=== PATIENT | male | born 1975 | race Two or more races ===

== ENCOUNTER 2020-05-11 12:19 | Emergency (ER) | payer OTHER, SELFPAY ==
--- NOTE | ~2020-05-11 | CT_ITS ---
EXAMINATION: CT ABDOMEN AND PELVIS WITHOUT CONTRAST CLINICAL INFORMATION: Right-sided flank pain and nausea COMPARISON: None TECHNIQUE: Multidetector volumetric imaging was performed from the superior aspect of the liver through the pubic symphysis. Sagittal and coronal reformatted images were obtained on the technologist's workstation. This CT examination was performed using dose optimization techniques as appropriate, variously including the following: *Automated exposure control *Adjustment of mA and/or kV according to patient size (this includes techniques or standardized protocols for targeted exams where dose is matched to indication/reason for exam; i.e. extremities or head) *Use of iterative reconstruction technique DLP: 1224.06 mGy-cm FINDINGS: LUNG BASES: The visualized lung bases are unremarkable. The heart is not enlarged. There is no pericardial effusion LIVER, GALLBLADDER, AND BILIARY TREE: The liver is normal in size, shape, and attenuation. No focal hepatic lesion or biliary ductal dilatation is present. The gallbladder is decompressed. There is no evidence of radiopaque gallstones, gallbladder wall thickening, or obvious pericholecystic inflammatory changes. PANCREAS: Unremarkable. Very mild mesenteric haziness adjacent to the body of the pancreas, nonspecific. SPLEEN: Unremarkable. ADRENAL GLANDS: Unremarkable. KIDNEYS AND URETERS: There is mild perinephritic stranding and periureteral stranding secondary to a 3 mm calculus at the level of the right mid ureter at the level of the L4 vertebral body. There is minimal right-sided hydronephrosis. No left-sided nephrolithiasis or hydronephrosis. BLADDER: Unremarkable. GASTROINTESTINAL TRACT: The small and large bowel are unremarkable. The appendix is unremarkable. ABDOMINAL WALL: Small fat filled umbilical hernia. Small fat filled right inguinal hernia. LYMPH NODES: Scattered periaortic and mesenteric lymph nodes not enlarged by size criteria. No enlarged lymph nodes visualized. VASCULAR: Abdominal aorta is nonaneurysmal. Pelvic phleboliths are visualized. PELVIC VISCERA: Unremarkable. OSSEOUS STRUCTURES: Multilevel degenerative changes of the thoracolumbar spine with disc space narrowing, vacuum disc phenomenon, anterior osteophyte formation, and facet arthropathy. No large lytic or blastic lesions are noted. CT/CT abdomen pelvis wo con IMPRESSION: 1. Mild perinephritic stranding and periureteral stranding secondary to a 3 mm calculus at the level of the right mid ureter at the level of the L4 vertebral body. 2. Scattered periaortic and mesenteric lymph nodes not enlarged by size criteria, likely reactive. 3. Very mild mesenteric haziness adjacent to the body of the pancreas, nonspecific.
[2020-05-11 12:48] VITALS: BP 157/82; PULSE 85; RESP 16; TEMP 36.8; O2SAT 96; BMI 49.6
--- NOTE | 2020-05-11 13:16 | PC.NURSE ---
delphine thompson at bedside, pt reports 1 episode of vomiting small amount
--- NOTE | 2020-05-11 13:21 | ED_ITS ---
HPI - Back Pain/Injury General Chief Complaint: Back Pain/Injury Stated Complaint: mid back pain Time Seen by Provider: 05/11/20 12:56 Source: patient Mode of arrival: ambulatory Limitations: no limitations History of Present Illness HPI Narrative: 45 y/o male presenting with intermittent, non-traumatic severe right sided back and flank pain for the last 3 days. He states the pain initially woke him up from sleep early morning. It is sharp and stabbing in nature, non-raditaing. He states it comes and goes. He had another episode in the middle of the night on Tuesday, this episode lasted hours. He took Advil but was nauseated and vomited. He denies urinary symptoms, abdominal pain, fever, chills, SOB or chest pain. He reported 5/10 pain in the waiting room that is now resolved. MD elicited complaint: back pain Onset (ago): day(s) (3) Timing: intermittent Severity: moderate Similar Symptoms Previously: No Quality: sharp and stabbing Location: right flank Radiation: none Exacerbating factors: none Relieving factors: none Context: unknown Associated symptoms: denies other symptoms Work related injury: No Related Data Previous Rx's Medication Instructions Recorded ibuprofen 600 mg PO Q8H PRN #10 tab 05/11/20 ondansetron HCl [Zofran] 4 mg PO Q8H PRN #10 tab 05/11/20 oxycodone 5 mg PO Q8H PRN #6 tab 05/11/20 tamsulosin [Flomax] 0.4 mg PO DAILY #7 cap 05/11/20 Allergies Allergy/AdvReac Type Severity Reaction Status Date / Time No Known Allergies Allergy Unverified 12/13/19 15:01 [No Known Allergies*] Review of Systems Review of Systems: Constitutional: No Fever, No Chills Cardiovascular: No Chest Pain, No SOB, No Orthopnea, No Edema Respiratory: No Cough, No Sputum, No Wheezing, No dyspnea Gastrointestinal: No Nausea, No Vomiting, No Diarrhea, No abdominal Pain Genitourinary: No Dysuria, No Urinary Frequency, No Hematuria Musculoskeletal: No joint pain, No Myalgias, +Back pain Skin: No Skin Lesions, No rash Neuro: No Weakness, No Numbness, No Dizziness, No Headache Psych: No Anxiety/Panic, No Depression Heme/Lymph: No Bruising, No Lymphadenopathy Endocrine: No Polyuria, No Polydipsia [facility] Past Medical History Surgical History (Updated 05/11/20 @ 12:52 by Nereida Briggs) H/O hernia repair Social History Social History Smoked in Last 30 Days: No Use of substances other than those prescribed or required for medical reasons: No Advance Directives: No Advance Directives Information Provided: No Physical Exam Vital Signs: Vital Signs: Last Vital Signs Temp 98.2 F 05/11/20 12:48 Pulse 85 05/11/20 12:48 Resp 16 05/11/20 12:48 BP 157/82 H 05/11/20 12:48 Pulse Ox 96 05/11/20 12:48 Body Mass Index 49.6 Appearance: Alert. Oriented X3. No acute distress. Eyes: Pupils equal, round and reactive to light. ENT: Pharynx normal. Neck: Normal inspection. Neck supple. CVS: Normal heart rate and rhythm. Pulses normal. Respiratory: No respiratory distress. Breath sounds normal. Abdomen: Morbidly obese, Soft and nontender. +BS x4. No CVA tenderness. Right flank with mild soft tissue tenderness Skin: Skin warm and dry. Normal skin color. Normal skin turgor. No rashes. Extremities: No lower extremity edema. Neuro: Oriented X 3. No motor deficit. No sensory deficit. Course Course Course Narrative: 45 yo male with intermittent right flank pain associated with nausea and vomiting x1. Concern for possible kidney stones. Will get lab work and CT scan for further evaluation. Reevaluation(s) Reevaluation #1: UA with blood. CT scan showing 3mm kidney stone in middle right ureter with mild peripnephric stranding. No pain at this time. Will give prednisone and flomax now and d/c with the same. Patient counseled on findings , management & follow up. He is stable for discharge. MDM - Back Pain/Injury Lab Data Result diagrams: 05/11/20 13:37 05/11/20 13:37 Labs: Lab Results 05/11/20 05/11/20 05/11/20 Range/Units 13:19 13:37 13:37 WBC 10.5 (4.8-10.8) X10*3/uL RBC 5.38 (4.60-5.80) X10*6/uL Hgb 14.9 (14.0-18.0) g/dl Hct 45.8 (42-52) % MCV 85.1 (80-98) fL MCH 27.7 (27.0-33.0) pg MCHC 32.5 (31.0-36.0) g/dl RDW 14.6 (11.0-16.0) % Plt Count 271 (160-400) X10*3/uL MPV 10.9 (9.4-12.4) fL Immature Gran % (Auto) 0.3 (0.0-0.4) % Neut % (Auto) 71.3 (45-73) % Lymph % (Auto) 20.6 (20-40) % [place] % (Auto) 5.9 (2-11) % Eos % (Auto) 1.2 (0-4) % Baso % (Auto) 0.7 (0-2) % Lymph # (Auto) 2.2 (1.2-4.9) X10*3/uL [place] # (Auto) 0.6 (0.1-1.2) X10*3/uL Eos # (Auto) 0.1 (0.0-0.4) X10*3/uL Baso # (Auto) 0.1 (0.0-0.2) X10*3/uL Abs Immat Gran (auto) 0.03 (0.00-0.03) X10*3/uL Absolute Neuts (auto) 7.5 (2.0-8.3) X10*3/uL Absolute Nucleated RBC 0.000 (0.0-0.012) X10*3/uL Nucleated RBC % (auto) 0.0 (0.0-0.2) /100WBC Sodium 139 (135-145) mmol/L Potassium 4.0 (3.3-5.1) mmol/L Chloride 107 (96-108) mmol/L Carbon Dioxide 25 (22-29) mmol/L Anion Gap 11 L (12-20) BUN 26 H (9-16) mg/dL Creatinine 1.09 (0.5-1.4) mg/dL Estim Creat Clear Calc 111.2 Estimated GFR > 60 Random Glucose 107 (60-115) mg/dL Calcium 9.0 (8.4-10.2) mg/dL Total Bilirubin 0.8 (0.0-1.0) mg/dL Direct Bilirubin 0.2 (0.0-0.5) mg/dL AST 16 (5-37) U/L ALT 17 (0-40) U/L Alkaline Phosphatase 62 (39-117) U/L Total Protein 7.2 (6.5-8.0) g/dL Albumin 4.0 (3.5-5.0) g/dL Urine Color YELLOW Urine Appearance CLEAR Urine pH 6.0 (5.0-8.0) Ur Specific [place] 1.025 (1.005-1.025) Urine Protein NEG (NEG-TRACE) MG/DL Urine Glucose (UA) NEG (NEG) MG/DL Urine Ketones NEG (NEG) MG/DL Urine Blood 3+ H (NEG) Urine Nitrite NEG (NEG) Ur Leukocyte Esterase NEG (NEG) Urine RBC 15-29 H (0) /HPF Urine WBC 1-4 (0-4) /HPF Ur Squamous Epith Cells 1+ /LPF Urine Bacteria TRACE /LPF Urine Mucus 2+ /LPF Discharge Plan Discharge Clinical Impression: Kidney stone on right side Patient Disposition: Home, Self-Care Instructions: Kidney Stones (ED) Additional Instructions: Your CT scan today showed a small 3 mm kidney stone which is the cause if your pain. You will likely pass this on your own. Take the prescribed medications as directed. Increase your oral hydration, drink plenty of water. Follow up with the Urologist next week. If you pain is severe or if you have persistent vomiting come back to the ER for further evaluation. Prescriptions: New tamsulosin [Flomax] 0.4 mg capsule 0.4 mg PO DAILY Qty: 7 RF: 0 ondansetron HCl [Zofran] 4 mg tablet 4 mg PO Q8H PRN (Reason: nausea and vomiting) Qty: 10 RF: 0 ibuprofen 600 mg tablet 600 mg PO Q8H PRN (Reason: pain) Qty: 10 RF: 0 oxycodone 5 mg tablet 5 mg PO Q8H PRN (Reason: pain) Qty: 6 RF: 0 Referrals: Hebert Jj MD [Physician] - 2 days (kidney stone)
[2020-05-11 13:36] LABS: Glucose Urine UA NEG (NEG); Leukocyte Esterase Urine NEG (NEG); Nitrite Urine NEG (NEG); Specific Gravity - Urine 1.025 (1.005-1.025); Urine Blood 3+ (NEG); Urine Ketones NEG (NEG); Urine Protein NEG (NEG-TRACE)
[2020-05-11 13:38] LABS: Appearance Urine CLEAR; Color Urine YELLOW
[2020-05-11 13:43] LABS: MANUAL DIFF FLAG NO
[2020-05-11 13:46] LABS: Basophils Absolute Auto 0.1 X10*3/uL (0.0-0.2); Basophils Percent Auto 0.7 % (0-2); Eosinophils Absolute Auto 0.1 X10*3/uL (0.0-0.4); Eosinophils Percent Auto 1.2 % (0-4); Hematocrit 45.8 % (42-52); Hemoglobin 14.9 g/dl (14.0-18.0); Imm Gran Abs Auto 0.03 X10*3/uL (0.00-0.03); Imm Gran Pct Auto 0.3 % (0.0-0.4); Lymphocytes Absolute Auto 2.2 X10*3/uL (1.2-4.9); Lymphocytes Percent Auto 20.6 % (20-40); Mean Corpuscular HGB Conc 32.5 g/dl (31.0-36.0); Mean Corpuscular Hemoglobin 27.7 pg (27.0-33.0); Mean Corpuscular Volume 85.1 fL (80-98); Mean Platelet Volume 10.9 fL (9.4-12.4); Monocytes Absolute Auto 0.6 X10*3/uL (0.1-1.2); Monocytes Percent Auto 5.9 % (2-11); Neutrophils Absolute Auto 7.5 X10*3/uL (2.0-8.3); Neutrophils Percent Auto 71.3 % (45-73); Platelet Count 271 X10*3/uL (160-400); Red Blood Count 5.38 X10*6/uL (4.60-5.80); Red Cell Distribution Width 14.6 % (11.0-16.0); White Blood Count 10.5 X10*3/uL (4.8-10.8)
[2020-05-11 13:51] LABS: Bacteria Urine TRACE /LPF; Mucus Urine 2+ /LPF; Squamous Epithelial Cell Urine 1+ /LPF
[2020-05-11 14:12] LABS: Alanine Aminotransferase 17 U/L (0-40); Alkaline Phosphatase 62 U/L (39-117); Anion Gap 11 (12-20); Aspartate Amino Transferase 16 U/L (5-37); Bilirubin Direct 0.2 mg/dL (0.0-0.5); Bilirubin Total 0.8 mg/dL (0.0-1.0); Blood Urea Nitrogen 26 mg/dL (9-16); Carbon Dioxide 25 mmol/L (22-29); Chloride 107 mmol/L (96-108); Creatinine Clr Calc Pharmacy 111.2; Estimated Glomerular Filt Rate > 60; Glucose Random 107 mg/dL (60-115); Sodium 139 mmol/L (135-145); Total Protein 7.2 g/dL (6.5-8.0)
[2020-05-11] MEDS: Ibuprofen 600 MG TABLET PO (15:08)
[2020-05-11] MEDS: Tamsulosin HCL 0.4 MG CAPSULE PO (15:08)
[2020-05-11] MEDS: predniSONE 10 MG TABLET 50 MG PO (15:09)
== END 2020-05-11 15:13 | disposition home or self-care (01) ==
PROVIDERS: Physician Assistant; Emergency Provider Emergency Medicine Emergency Medical Services; PCP Internal Medicine
DX: N20.0 Calculus of kidney (principal); M54.5 Low back pain; R10.9 Unspecified abdominal pain; Z79.899 Other long term (current) drug therapy
CPT/HCPCS: 36415; 74176; 80048; 80076; 81001; 85025; 99283; 99284

== ENCOUNTER 2021-05-09 07:21 | Outpatient (REF) | payer OTHER, SELFPAY ==
[2021-05-09 07:42] LABS: MANUAL DIFF FLAG NO
[2021-05-09 07:57] LABS: Basophils Absolute Auto 0.1 X10*3/uL (0.0-0.2); Basophils Percent Auto 0.7 % (0-2); Eosinophils Absolute Auto 0.2 X10*3/uL (0.0-0.4); Eosinophils Percent Auto 2.6 % (0-4); Hemoglobin 15.4 g/dl (14.0-18.0); Imm Gran Abs Auto 0.03 X10*3/uL (0.00-0.03); Imm Gran Pct Auto 0.4 % (0.0-0.4); Lymphocytes Absolute Auto 1.8 X10*3/uL (1.2-4.9); Lymphocytes Percent Auto 22.8 % (20-40); Mean Corpuscular HGB Conc 32.1 g/dl (31.0-36.0); Mean Corpuscular Hemoglobin 27.5 pg (27.0-33.0); Mean Corpuscular Volume 85.9 fL (80.0-98.0); Mean Platelet Volume 10.9 fL (9.4-12.4); Monocytes Absolute Auto 0.4 X10*3/uL (0.1-1.2); Monocytes Percent Auto 4.6 % (2-11); Neutrophils Absolute Auto 5.6 x10*3/uL (2.0-8.3); Neutrophils Percent Auto 68.9 % (45-73); Platelet Count 258 X10*3/uL (160-400); Red Blood Count 5.59 X10*6/uL (4.60-5.80); Red Cell Distribution Width 14.7 % (11.0-16.0); White Blood Count 8.1 X10*3/uL (4.8-10.8)
[2021-05-09 08:27] LABS: Alanine Aminotransferase 15 U/L (0-40); Albumin Level 4.1 g/dL (3.5-5.0); Alkaline Phosphatase 61 U/L (39-117); Anion Gap 13 (12-20); Aspartate Amino Transferase 14 U/L (5-37); Bilirubin Total 0.8 mg/dL (0.0-1.0); Blood Urea Nitrogen 25 mg/dL (9-16); Calcium 9.2 mg/dL (8.4-10.2); Carbon Dioxide 23 mmol/L (22-29); Chloride 106 mmol/L (96-108); Cholesterol 186 mg/dL; Estimated Glomerular Filt Rate > 60; Glucose Random 101 mg/dL (60-115); HDL Cholesterol 36 mg/dL; LDL Cholesterol Calculated 135 mg/dl; Potassium 4.5 mmol/L (3.3-5.1); Sodium 137 mmol/L (135-145); Total Protein 7.5 g/dL (6.5-8.0); Triglycerides 79 mg/dL
[2021-05-09 08:49] LABS: Free T4 (Free Thyroxine) 0.84 ng/dL (0.71-1.85); Thyroid Stimulating Hormone 1.46 uIU/mL (0.32-4.0)
[2021-05-11 05:01] LABS: Folate 7.4 ng/mL (> or = 4.0); Vitamin B12 262 pg/mL (200-900)
== END 2021-05-09 07:22 | disposition home or self-care (01) ==
LOC: HO.LAB 07:21
PROVIDERS: PCP Internal Medicine; Visit Provider Internal Medicine
DX: E66.9 Obesity, unspecified (principal); E53.8 Deficiency of other specified B group vitamins; E78.00 Pure hypercholesterolemia, unspecified
CPT/HCPCS: 36415; 80053; 80061; 82607; 82746; 84439; 84443; 85025

== ENCOUNTER 2022-09-17 07:31 | Outpatient (REF) | payer OTHER, SELFPAY ==
[2022-09-17 07:41] LABS: MANUAL DIFF FLAG NO
[2022-09-17 08:37] LABS: Basophils Absolute Auto 0.1 X10*3/uL (0.0-0.2); Eosinophils Absolute Auto 0.2 X10*3/uL (0.0-0.4); Eosinophils Percent Auto 2.9 % (0-4); Hematocrit 45.4 % (42.0-52.0); Hemoglobin 14.7 g/dl (14.0-18.0); Imm Gran Abs Auto 0.03 X10*3/uL (0.00-0.03); Imm Gran Pct Auto 0.4 % (0.0-0.4); Lymphocytes Absolute Auto 1.9 X10*3/uL (1.2-4.9); Lymphocytes Percent Auto 23.7 % (20-40); Mean Corpuscular HGB Conc 32.4 g/dl (31.0-36.0); Mean Corpuscular Hemoglobin 27.8 pg (27.0-33.0); Mean Platelet Volume 11.1 fL (9.4-12.4); Monocytes Absolute Auto 0.4 X10*3/uL (0.1-1.2); Monocytes Percent Auto 5.3 % (2-11); Neutrophils Absolute Auto 5.2 x10*3/uL (2.0-8.3); Neutrophils Percent Auto 66.7 % (45-73); Platelet Count 259 X10*3/uL (160-400); Red Blood Count 5.28 X10*6/uL (4.60-5.80); Red Cell Distribution Width 14.3 % (11.0-16.0); White Blood Count 7.8 X10*3/uL (4.8-10.8)
[2022-09-17 09:21] LABS: Alanine Aminotransferase 14 U/L (0-40); Albumin Level 3.8 g/dL (3.5-5.0); Alkaline Phosphatase 54 U/L (39-117); Anion Gap 10 (12-20); Aspartate Amino Transferase 14 U/L (5-37); Bilirubin Total 0.7 mg/dL (0.0-1.0); Blood Urea Nitrogen 23 mg/dL (9-16); Calcium 8.9 mg/dL (8.4-10.2); Carbon Dioxide 23 mmol/L (22-29); Chloride 108 mmol/L (96-108); Cholesterol 153 mg/dL; Estimated Glomerular Filt Rate > 60; Glucose Random 104 mg/dL (60-115); HDL Cholesterol 35 mg/dL; LDL Cholesterol Calculated 105 mg/dl; Potassium 3.9 mmol/L (3.3-5.1); Sodium 137 mmol/L (135-145); Total Protein 7.4 g/dL (6.5-8.0); Triglycerides 66 mg/dL; Uric Acid 6.2 mg/dL (3.4-7.0)
[2022-09-17 09:28] LABS: Free T4 (Free Thyroxine) 0.85 ng/dL (0.71-1.85); Thyroid Stimulating Hormone 1.87 uIU/mL (0.32-4.0)
[2022-09-17 09:51] LABS: Folate 3.8 ng/mL (> or = 4.0); Vitamin B12 597 pg/mL (200-900)
[2022-09-17 09:53] LABS: Estimated Average Glucose 105 mg/dL; Hemoglobin A1c % 5.3 %
== END 2022-09-17 07:32 | disposition home or self-care (01) ==
LOC: HO.LAB 07:31
PROVIDERS: PCP Internal Medicine; Visit Provider Internal Medicine
DX: R73.02 Impaired glucose tolerance (oral) (principal); E78.00 Pure hypercholesterolemia, unspecified; I10 Essential (primary) hypertension; N20.0 Calculus of kidney
CPT/HCPCS: 36415; 80053; 80061; 82607; 82746; 83036; 84439; 84443; 84550; 85025

== ENCOUNTER 2023-06-15 10:51 | Outpatient (AMB) | payer OTHER, SELFPAY ==
[2023-06-15 11:06] VITALS: BP 122/90; PULSE 62; O2SAT 97; BMI 46.6
--- NOTE | 2023-06-15 11:06 | MHC.PC.OV ---
Vital Signs 06/15/23 11:06 06/15/23 11:26 Height 5 ft 5 in Weight 280 lb BMI 46.6 BP 122/90 H 118/86 Blood Pressure Location Lt brachial Lt brachial Position Sitting Sitting Pulse 62 Pulse Source Pulse Oximeter Pulse Oximetry (%) 97 Oxygen Delivery Method Room Air Intake Visit Reasons: f/u Intake Note: Patient is here to follow up Gear Setter Required: No Allergies No Known Allergies [No Known Allergies*] Allergy (Verified 06/15/23 11:06) Tobacco use date assessed: 06/15/23 Dental Screening Dental Screen Date: 06/15/23 Did you have a dental visit in the last 12 months?: No Did you have a dental problem in the last 6 months where you did not have access to dental care?: No HPI f/u HPI Details 48-year-old morbidly obese male with hypercholesterolemia hypertension impaired glucose tolerance coming in for follow-up. Last seen in August 2022 [facility] Medical History (Updated 06/15/23 @ 11:25 by Arsalan Cooper MD) Right renal stone Hypercholesterolemia Vitamin D deficiency Surgical History (Updated 03/04/21 @ 16:51 by Arsalan Cooper MD) Male circumcision H/O hernia repair Social History (Updated 03/09/21 @ 10:10 by Arsalan Cooper MD) Housing: Apartment Alcohol intake: never Patient Tobacco Use Status: Never used Tobacco e-Cigarette/Vaping Use: Never Used Second Hand Smoke Exposure: No Current occupational status: unemployed Cognitive needs: No Hearing needs: No Vision needs: No Questionnaire Thrive Questionnaire Date Thrive assessed: 09/16/22 AUDIT C Alcohol Use Questionnaire (AUDIT-C) 1. How often do you have a drink containing alcohol?: Never 3. How often do you have six or more drinks on one occasion?: Never Total Score: 0 RA-7 AMB Questionnaire RA-7 Date RA - 7 assessed: 06/15/23 Source: Developed by Drs. Evan Ball, Dolly Weinstein, Delano Lombardo and colleagues, with an educational patricia from [employer]. Physical exam (Primary Care) Vital Signs: Last Vital Signs Pulse 62 06/15/23 11:06 BP 122/90 H 06/15/23 11:06 Pulse Ox 97 06/15/23 11:06 Oxygen Delivery Method Room Air 06/15/23 11:06 BMI result Body Mass Index 46.6 Tobacco/Smoking Status: Tobacco use Status Tobacco use date assessed 06/15/23 06/15/23 11:11 Patient Tobacco Use Status Never used Tobacco 06/15/23 11:11 e-Cigarette/Vaping Use Never Used 06/15/23 11:11 Thrive Assessment: Date of Thrive Assessment Date Thrive assessed 09/16/22 06/15/23 11:11 Const General: alert; No acute distress Eyes Conjunctivae: conjunctivae normal Resp Auscultation: clear to auscultation bilaterally Cardio Rate: regular rate Rhythm: regular rhythm GI Inspection: Yes normal to inspection Extrem General: Yes normal to inspection and No edema Assessment and Plan Assessment & Plan (1) Folic acid deficiency: Code(s): E53.8 - Deficiency of other specified B group vitamins Plan: Folic acid 1 mg once a day (2) Impaired glucose tolerance: Code(s): R73.02 - Impaired glucose tolerance (oral) Plan: Decrease the amount of carbohydrate intake, pasta, bread, rice and potatoes are all sugar and that is aside from all the sweet stuff, remember that fruits are good but they are Sweet also. (3) Hypertension: Code(s): I10 - Essential (primary) hypertension Plan: Continue with blood pressure medication. Decrease salt intake and exercise presently on hydrochlorothiazide 12.5 mg once a day (4) Morbidly obese: Code(s): E66.01 - Morbid (severe) obesity due to excess calories Plan: Diet and exercise (5) Hypercholesterolemia: Code(s): E78.00 - Pure hypercholesterolemia, unspecified Plan: Avoid fried foods, chicken skin, eggs, butter margarine, pastries and meat. Be it pork or beef they have a lot of cholesterol August 2022 blood work normal (6) Colon cancer screening: Code(s): Z12.11 - Encounter for screening for malignant neoplasm of colon Plan: Patient is reminded about colon cancer screening (7) Colonoscopy refused: Code(s): Z53.20 - Procedure and treatment not carried out because of patient's decision for unspecified reasons Orders: Orders Complete Blood Count Auto Diff Today E53.8 - Deficiency of other specified B group vitamins Comprehensive Met. Panel Today E53.8 - Deficiency of other specified B group vitamins Hemoglobin A1c Today E53.8 - Deficiency of other specified B group vitamins Vitamin B12 and Folate Today E53.8 - Deficiency of other specified B group vitamins Free T4 (Free Thyroxine) Today E53.8 - Deficiency of other specified B group vitamins Thyroid Stimulating Hormone Today E53.8 - Deficiency of other specified B group vitamins Lipid Panel Today E53.8 - Deficiency of other specified B group vitamins, E78.00 - Pure hypercholesterolemia, unspecified Coding Level of Care Code Est Pt Level 4 (28528) Diagnoses Folic acid deficiency E53.8 Impaired glucose tolerance R73.02 Hypertension I10 Morbidly obese E66.01 Hypercholesterolemia E78.00 Colon cancer screening Z12.11 Colonoscopy refused Z53.20
[2023-06-15 11:26] VITALS: BP 118/86
== END 2023-06-15 11:35 | disposition home or self-care (01) ==
PROVIDERS: PCP Internal Medicine; Visit Provider Internal Medicine
DX: E53.8 Deficiency of other specified B group vitamins (principal); E66.01 Morbid (severe) obesity due to excess calories; Z68.42 Body mass index [BMI] 45.0-49.9, adult; R73.02 Impaired glucose tolerance (oral); I10 Essential (primary) hypertension; E78.00 Pure hypercholesterolemia, unspecified; Z12.11 Encounter for screening for malignant neoplasm of colon; Z53.20 Procedure and treatment not carried out because of patient's decision for unspecified reasons
CPT/HCPCS: 99214

== ENCOUNTER 2023-11-23 10:21 | Outpatient (AMB) | payer OTHER, SELFPAY ==
--- NOTE | 2023-11-23 10:26 | A.OFFPC_ITS ---
Vital Signs 11/23/23 10:28 11/23/23 10:41 Height 5 ft 5 in Weight 278 lb BMI 46.3 BP 130/90 H 130/80 Blood Pressure Location Lt brachial Lt brachial Position Sitting Sitting Pulse 72 Pulse Source Pulse Oximeter Pulse Oximetry (%) 98 Oxygen Delivery Method Room Air Intake Visit Reasons: Annual Exam- NEEDS PHQ9 Allergies No Known Allergies [No Known Allergies*] Allergy (Verified 11/23/23 10:28) Medication List - Last Reconciled 11/23/23 by Arsalan Cooper MD blood pressure monitor (Blood Pressure Kit) As directed cyanocobalamin (vitamin B-12) 1,000 mcg PO DAILY folic acid 1 mg PO DAILY hydrochlorothiazide 12.5 mg PO DAILY 90 days Tobacco use date assessed: 06/15/23 Dental Screening Dental Screen Date: 11/23/23 Did you have a dental visit in the last 12 months?: No Did you have a dental problem in the last 6 months where you did not have access to dental care?: No Was dental information given to patient?: Patient has dentist HPI Annual Exam- NEEDS PHQ9 HPI Details 48-year-old morbidly obese male with imp aired glucose tolerance hypertension hypercholesterolemia folic acid deficiency coming in for physical exam last seen in [id number]. Patient has declined colonoscopy. [facility] Medical History (Updated 11/23/23 @ 10:35 by Arsalan Cooper MD) Obesity Right renal stone Hypercholesterolemia Vitamin D deficiency Surgical History (Updated 03/04/21 @ 16:51 by Arsalan Cooper MD) Male circumcision H/O hernia repair Family History (Updated 11/23/23 @ 10:31 by Laura Shah [facility]) Mother No problems noted. Father No problems noted. Brother No problems noted. Sister No problems noted. Daughter No problems noted. Daughter No problems noted. Social History (Updated 03/09/21 @ 10:10 by Arsalan Cooper MD) Housing: Apartment Alcohol intake: never Patient Tobacco Use Status: Never used Tobacco Tobacco use type: Cigarette e-Cigarette/Vaping Use: Never Used Second Hand Smoke Exposure: No Current occupational status: unemployed Cognitive needs: No Hearing needs: No Vision needs: No Questionnaire PHQ-9 Over the last 2 weeks, how often have you been bothered by any of the following problems? 1. Little interest or pleasure in doing things: not at all 2. Feeling down, depressed, or hopeless: not at all 3. Trouble falling or staying asleep, or sleeping too much: not at all 4. Feeling tired or having little energy: not at all 5. Poor appetite or overeating: not at all 6. Feeling bad about yourself - or that you are a failure or have let yourself or your family down: not at all 7. Trouble concentrating on things, such as reading the newspaper or watching television: not at all 8. Moving or speaking so slowly that other people could have noticed. Or the opposite - being so fidgety or restless that you have been moving around a lot more than usual: not at all 9. Thoughts that you would be better off or of hurting yourself in some way: not at all Total score: 0 Depression Screening Interpretation: Negative Depression Screening Done: Yes [id number] - PHQ-9 Billing: Yes Source: Developed by Drs. Evan Ball, Dolly Weinstein, Delano Lombardo and colleagues, with an educational patricia from [employer] Thrive Questionnaire Date Thrive assessed: 11/23/23 I am a: Patient What is your living situation today?: I have a steady place to live Within the past 12 months, did the food you bought not last and you didn't have the money to get more?: Never true Within the past 12 months, did you worry whether your food would run out before you got money to buy more?: Never true Do you have trouble paying for medicines?: No Do you have trouble getting transportation to medical appointments?: No Do you have trouble paying your heating and electricity bill?: No Do you have trouble taking care of your child, family member or friend?: No Do you have trouble with day-to-day activities such as bathing, preparing meals, shopping, managing finances, etc.?: No Are you currently unemployed and looking for a job?: No Are you interested in more education?: No Please select the resources that you would like help with: None Currently or been in a relationship where the following occur: No concerns reported THRIVE Score: 0 AUDIT C Alcohol Use Questionnaire (AUDIT-C) 1. How often do you have a drink containing alcohol?: Never Total Score: 0 RA-7 AMB Questionnaire RA-7 Date RA - 7 assessed: 11/23/23 Feeling nervous, anxious, or on edge: 0 = Not at all Not being able to stop or control worryin = Not at all Worrying too much about different things: 0 = Not at all Trouble relaxin = Not at all Being so restless that it is hard to sit still: 0 = Not at all Becoming easily annoyed or irritable: 0 = Not at all Feeling afraid as if something awful might happen: 0 = Not at all Total RA-7 score (0-4 normal; 5-9 mild; 10-14 moderate; 15-21 severe): 0 Source: Developed by Drs. Evan Ball, Dolly Weinstein, Delano Lombardo and colleagues, with an educational patricia from [employer]. Review of Systems Const Denies poor appetite and Denies weakness Eyes Denies no additional complaints ENT Reports Normal hearing present, Denies dizziness, Denies nasal congestion, Denies tinnitus and Denies sore throat Card Denies chest pain, Denies syncope, Denies rapid heart rate and Denies dyspnea Resp Denies cough and Denies dyspnea GI Denies change in stool character, Reports constipation, Denies diarrhea, Denies nausea and Denies vomiting Denies dysuria and Denies urinary frequency Neuro Reports Normal hearing present, Denies confusion, Denies dizziness, Denies syncope and Denies weakness Psych Denies confusion Physical exam (Primary Care) Vital Signs: Last Vital Signs Pulse 72 11/23/23 10:28 BP 130/90 H 11/23/23 10:28 Pulse Ox 98 11/23/23 10:28 Oxygen Delivery Method Room Air 11/23/23 10:28 BMI result Body Mass Index 46.3 Tobacco/Smoking Status: Tobacco use Status Tobacco use date assessed 06/15/23 11/23/23 10:27 Patient Tobacco Use Status Never used Tobacco 11/23/23 10:27 Tobacco use type Cigarette 11/23/23 10:33 e-Cigarette/Vaping Use Never Used 11/23/23 10:27 PHQ-9: PHQ-9 Score PHQ-9: Total score 0 11/23/23 10:27 Depression Screening Interpretation: Negative Thrive Assessment: Date of Thrive Assessment Date Thrive assessed 11/23/23 11/23/23 10:33 Currently or been in a relationship where the following occur: No concerns reported Const General: No confusion Orientation/consciousness: No confusion Neuro General: No confusion Cranial nerves: Yes Normal hearing present Assessment and Plan Assessment & Plan (1) Annual physical exam: Code(s): Z00.00 - Encounter for general adult medical examination without abnormal findings Plan: Patient is advised to eat healthy, keep well hydrated, keep active and have adequate sleep. (2) Morbidly obese: Code(s): E66.01 - Morbid (severe) obesity due to excess calories Plan: Diet and exercise, noted weight loss (3) Hypertension: Code(s): I10 - Essential (primary) hypertension Plan: Continue with blood pressure medication. Decrease salt intake and exercise on hydrochlorothiazide 12.5 mg once a day (4) Impaired glucose tolerance: Code(s): R73.02 - Impaired glucose tolerance (oral) Plan: Decrease the amount of carbohydrate intake, pasta, bread, rice and potatoes are all sugar and that is aside from all the sweet stuff, remember that fruits are good but they are Sweet also. (5) Folic acid deficiency: Code(s): E53.8 - Deficiency of other specified B group vitamins Plan: Will do retesting (6) Colonoscopy refused: Code(s): Z53.20 - Procedure and treatment not carried out because of patient's decision for unspecified reasons Coding Level of Care Code Est Pt Prev Care 40-64y(32005) Diagnoses Annual physical exam Z00.00 Morbidly obese E66.01 Hypertension I10 Impaired glucose tolerance R73.02 Folic acid deficiency E53.8 Colonoscopy refused Z53.20
[2023-11-23 10:28] VITALS: BP 130/90; PULSE 72; O2SAT 98; BMI 46.3
[2023-11-23 10:41] VITALS: BP 130/80
== END 2023-11-23 10:55 | disposition home or self-care (01) ==
PROVIDERS: PCP Internal Medicine; Visit Provider Internal Medicine
DX: Z00.00 Encounter for general adult medical examination without abnormal findings (principal); E66.01 Morbid (severe) obesity due to excess calories; Z68.42 Body mass index [BMI] 45.0-49.9, adult; I10 Essential (primary) hypertension; R73.02 Impaired glucose tolerance (oral); E53.8 Deficiency of other specified B group vitamins; Z53.20 Procedure and treatment not carried out because of patient's decision for unspecified reasons
CPT/HCPCS: 99396

== ENCOUNTER 2024-11-27 08:53 | Outpatient (AMB) | payer OTHER, SELFPAY ==
[2024-11-27 09:05] VITALS: BP 134/78; PULSE 68; O2SAT 96; BMI 44.9
--- NOTE | 2024-11-27 09:05 | MHC.PC.OV ---
Vital Signs 11/27/24 09:05 Height 5 ft 5 in Weight 270 lb BMI 44.9 BP 134/78 Blood Pressure Location Lt brachial Position Sitting Pulse 68 Pulse Source Pulse Oximeter Pulse Oximetry (%) 96 Oxygen Delivery Method Room Air Intake Visit Reasons: PE Allergies No Known Allergies (No Known Allergies*) Allergy (Verified 11/27/24 09:05) Medication List - Last Reconciled 11/27/24 by Arsalan Cooper MD blood pressure monitor (Blood Pressure Kit) As directed folic acid 1 mg PO DAILY hydrochlorothiazide 12.5 mg PO DAILY 90 days Tobacco use date assessed: 11/27/24 Dental Screening Dental Screen Date: 11/27/24 Did you have a dental visit in the last 12 months?: Yes Did you have a dental problem in the last 6 months where you did not have access to dental care?: No Was dental information given to patient?: Patient has dentist [facility] Medical History (Updated 11/27/24 @ 09:41 by Arsalan Cooper MD) Obesity Right renal stone Hypercholesterolemia Vitamin D deficiency Surgical History (Updated 03/04/21 @ 16:51 by Arsalan Cooper MD) Male circumcision H/O hernia repair Family History (Updated 11/23/23 @ 10:31 by Laura Shah CMA) Mother No problems noted. Father No problems noted. Brother No problems noted. Sister No problems noted. Daughter No problems noted. Daughter No problems noted. Social History (Updated 03/09/21 @ 10:10 by Arsalan Cooper MD) Housing: Apartment Alcohol intake: never Patient Tobacco Use Status: Never used Tobacco Tobacco use type: Cigarette e-Cigarette/Vaping Use: Never Used Second Hand Smoke Exposure: No Current occupational status: unemployed Cognitive needs: No Hearing needs: No Vision needs: No Questionnaire PHQ-9 Over the last 2 weeks, how often have you been bothered by any of the following problems? 1. Little interest or pleasure in doing things: not at all 2. Feeling down, depressed, or hopeless: not at all 3. Trouble falling or staying asleep, or sleeping too much: not at all 4. Feeling tired or having little energy: not at all 5. Poor appetite or overeating: not at all 6. Feeling bad about yourself - or that you are a failure or have let yourself or your family down: not at all 7. Trouble concentrating on things, such as reading the newspaper or watching television: not at all 8. Moving or speaking so slowly that other people could have noticed. Or the opposite - being so fidgety or restless that you have been moving around a lot more than usual: not at all 9. Thoughts that you would be better off or of hurting yourself in some way: not at all Total score: 0 Depression Screening Interpretation: Negative Depression Screening Done: Yes Source: Developed by Drs. Evan Ball, Dolly Weinstein, eDlano Lombardo and colleagues, with an educational patricia from [employer]. Thrive Questionnaire Date Thrive assessed: 11/20/24 I am a: Patient What is your living situation today?: I have a steady place to live Within the past 12 months, did the food you bought not last and you didn't have the money to get more?: Never true Within the past 12 months, did you worry whether your food would run out before you got money to buy more?: Never true Do you have trouble paying for medicines?: No Do you have trouble getting transportation to medical appointments?: No Do you have trouble paying your heating and electricity bill?: No Do you have trouble taking care of your child, family member or friend?: No Do you have trouble with day-to-day activities such as bathing, preparing meals, shopping, managing finances, etc.?: No Are you currently unemployed and looking for a job?: Yes Are you interested in more education?: No Please select the resources that you would like help with: None Currently or been in a relationship where the following occur: No concerns reported THRIVE Score: 0 AUDIT C Alcohol Use Questionnaire (AUDIT-C) 1. How often do you have a drink containing alcohol?: Never 3. How often do you have six or more drinks on one occasion?: Never Total Score: 0 RA-7 AMB Questionnaire RA-7 Date RA - 7 assessed: 11/27/24 Feeling nervous, anxious, or on edge: 0 = Not at all Not being able to stop or control worryin = Not at all Worrying too much about different things: 0 = Not at all Trouble relaxin = Not at all Being so restless that it is hard to sit still: 0 = Not at all Becoming easily annoyed or irritable: 0 = Not at all Feeling afraid as if something awful might happen: 0 = Not at all Total RA-7 score (0-4 normal; 5-9 mild; 10-14 moderate; 15-21 severe): 0 Source: Developed by Drs. Evan Ball, Dolly Weinstein, Delano Lombardo and colleagues, with an educational patricia from [employer]. Review of Systems Const Denies poor appetite and Denies weakness Eyes Denies no additional complaints ENT Reports Normal hearing present, Denies dizziness, Denies nasal congestion, Denies tinnitus and Denies sore throat Card Denies chest pain, Denies syncope, Denies rapid heart rate and Denies dyspnea Resp Denies cough and Denies dyspnea GI Denies change in stool character, Reports constipation, Denies diarrhea, Denies nausea and Denies vomiting Denies dysuria and Denies urinary frequency Neuro Reports Normal hearing present, Denies confusion, Denies dizziness, Denies syncope and Denies weakness Psych Denies confusion Physical exam (Primary Care) Vital Signs: Last Vital Signs Pulse 68 11/27/24 09:05 BP 134/78 11/27/24 09:05 Pulse Ox 96 11/27/24 09:05 Oxygen Delivery Method Room Air 11/27/24 09:05 BMI result Body Mass Index 44.9 Tobacco/Smoking Status: Tobacco use Status Tobacco use date assessed 11/27/24 11/27/24 09:06 Patient Tobacco Use Status Never used Tobacco 11/27/24 09:06 Tobacco use type Cigarette 11/27/24 09:06 e-Cigarette/Vaping Use Never Used 11/27/24 09:06 PHQ-9: PHQ-9 Score PHQ-9: Total score 0 11/27/24 09:50 Depression Screening Interpretation: Negative Thrive Assessment: Date of Thrive Assessment Date Thrive assessed 11/20/24 11/27/24 09:06 Currently or been in a relationship where the following occur: No concerns reported Const General: No confusion Orientation/consciousness: No confusion HENMT Head: Yes normocephalic Ears: external ears normal and TM's normal bilaterally Face and sinus: Yes normal facial exam Mouth: moist mucous membranes Throat: Yes tonsils normal Eyes Conjunctivae: conjunctivae normal Pupils: Equal, round and reactive pupils present and Pupil accommodation reflex normal Direct Ophthalmoscopy: normal light reflex Neck Neck: No lymphadenopathy Thyroid: Thyroid normal Chest Chest palpation & inspection: normal inspection of the chest Resp Effort & Inspection: normal respiratory effort and no audible wheezes Auscultation: clear to auscultation bilaterally, no crackles, no wheezes and lung sounds not diminished Cardio Rate: regular rate Rhythm: regular rhythm Peripheral pulses: radial pulses present and dorsalis pedis present GI Palpation (GI): no masses Auscultation: normal bowel sounds and normoactive bowel sounds Rectal Exam - Male: Yes deferred Skin General skin exam: no rashes or lesions noted Rashes: no rashes Neuro General: No confusion Cranial nerves: Yes Equal, round and reactive pupils present and Yes Normal hearing present Cognition (Neuro): normal cognition Gait exam (Neuro): Normal gait present Motor exam (neuro): 5/5 motor strength present throughout Deep tendon reflexes (DTR's): Right brachioradialis reflex intensity grade: 2+, Left brachioradialis reflex intensity grade: 2+, Right patellar reflex intensity grade: 2+ and Left patellar reflex intensity grade: 2+ Extrem General: No edema Immunizations Boostrix Tdap 2.5 Lf unit-8 mcg-5 Lf/0.5 mL intramuscular syringe Performing Provider: Arsalan Cooper MD [facility] Administered by: Laura Shah CMA on 11/27/24 09:51 Dose Route Admin Location Dispensed Lot Number Expiration Date NDC Practical Nursing Instructor 0.5 mL IM Left Deltoid 0.5 mL [id number] 01/18/27 28405-162-41 Code On Network Coding Total Dispensed Waste 0.5 mL 0 % VIS Given Date VIS Provided VIS Publication Date 11/27/24 Single Vaccine 20 Eligibility Eligibility Date Funding Source Not [facility] Eligible 11/27/24 Private Coding Level of Care Code Est Pt Prev Care 40-64y(23569) Diagnoses Annual physical exam Z00.00 Colon cancer screening Z12.11 Folic acid deficiency E53.8 Morbidly obese E66.01 Impaired glucose tolerance R73.02 Hypertension I10 Hypercholesterolemia E78.00 Colonoscopy refused Z53.20 Bilateral knee pain M25.561; M25.562 Assessment & Plan Assessment & Plan (1) Annual physical exam: Code(s): Z00.00 - Encounter for general adult medical examination without abnormal findings Category: Medical Plan: Patient is advised to eat healthy, keep well hydrated, keep active and have adequate sleep. (2) Colon cancer screening: Code(s): Z12.11 - Encounter for screening for malignant neoplasm of colon Category: Medical Plan: Patient is reminded about colon cancer screening (3) Folic acid deficiency: Code(s): E53.8 - Deficiency of other specified B group vitamins Category: Medical Plan: Continue with folic acid (4) Morbidly obese: Code(s): E66.01 - Morbid (severe) obesity due to excess calories Category: Medical Plan: Diet and exercise (5) Impaired glucose tolerance: Code(s): R73.02 - Impaired glucose tolerance (oral) Category: Medical Plan: Decrease the amount of carbohydrate intake, pasta, bread, rice and potatoes are all sugar and that is aside from all the sweet stuff, remember that fruits are good but they are Sweet also. (6) Hypertension: Code(s): I10 - Essential (primary) hypertension Category: Medical Plan: Continue with blood pressure medication. Decrease salt intake and exercise on hydrochlorothiazide 12.5 mg once a day (7) Hypercholesterolemia: Code(s): E78.00 - Pure hypercholesterolemia, unspecified Category: Medical Plan: Avoid fried foods, chicken skin, eggs, butter margarine, pastries and meat. Be it pork or beef they have a lot of cholesterol LDL goal of less than 130 and triglyceride of less than 150 (8) Colonoscopy refused: Code(s): Z53.20 - Procedure and treatment not carried out because of patient's decision for unspecified reasons Category: Medical (9) Bilateral knee pain: Code(s): M25.561 - Pain in right knee; M25.562 - Pain in left knee Category: Medical Plan History of Present Illness The patient is a 49-year-old male presenting for a physical examination and management of chronic conditions. He has a history of obesity, hypercholesterolemia, nephrolithiasis, hypertension, and impaired glucose tolerance. The patient was last seen in October of the previous year and has been following up with ophthalmology. The patient's last blood work in 2022 showed normal blood count and electrolytes, but elevated blood sugar with normal hemoglobin A1c and cholesterol levels. Folic acid levels were noted to be low. The patient denies any new diagnoses or surgeries since the last visit. He does not consume alcohol, smoke cigarettes, or use recreational drugs. There is no family history of heart attacks or cancers. The patient reports knee pain on both sides, more pronounced on one side, but denies any falls or need for x-rays at this time. He has been advised to increase water intake due to hydrochlorothiazide use. Health Maintenance - Colon cancer screening discussed, patient not ready for colonoscopy or Cologuard testing - Tetanus vaccination due, last received in 2014 - Flu vaccination recommended for December Social History - Does not consume alcohol, smoke cigarettes, or use recreational drugs - Reports drinking two to three glasses of water per day, advised to increase to three to four glasses Review of Systems - General: Denies dizziness, nausea, vomiting, fever, or fatigue - Cardiovascular: Denies chest pain, dyspnea, or palpitations - Respiratory: Denies shortness of breath or cough - Musculoskeletal: Reports bilateral knee pain, more pronounced on one side - Gastrointestinal: Denies heartburn or bowel movement issues - Genitourinary: Denies dysuria, reports nocturia twice per night - Neurological: Denies headaches or syncope Physical Exam General: Cooperative, healthy appearing, comfortable, no acute distress and well developed Orientation: Patient oriented x3 Limitations: No limitations Head: Normal to inspection Ears: Hearing grossly normal bilaterally Nose: Normal external nose present Face and sinus: Normal facial exam Eyes: Appearance normal, both eyes and all related structures Neck: Normal visual inspection and Yes full ROM Respiratory: Normal respiratory effort and able to speak in complete sentences. Clear to auscultation bilaterally Cardiovascular: Regular rate and rhythm. Normal S1 and S2 GI: Normal to inspection. Soft to palpation and nontender Skin: No rashes or lesions noted Neuro: Patient oriented x3 Extremities: Normal to inspection, but reports knee pain on both sides, more on the right side. No falls reported. Results - Labs: Normal blood count and electrolytes, elevated blood sugar, normal hemoglobin A1c, normal cholesterol, low folic acid Plan Patient was informed and verbally consented to the use of an ambient scribe for clinic note documentation during this visit. 1. Obesity The patient is advised to maintain a healthy diet and exercise regularly to manage obesity. 2. Hypercholesterolemia The patient is advised to maintain an LDL cholesterol goal of less than 130 mg/dL and triglycerides less than 150 mg/dL. 3. Nephrolithiasis The patient is advised to increase water intake to prevent kidney stones. 4. Hypertension The patient is currently on hydrochlorothiazide 12.5 mg once daily for blood pressure management. 5. Impaired Glucose Tolerance The patient is advised to follow a diabetes management plan, including diet and exercise. 6. Knee Pain The patient reports bilateral knee pain but declines x-rays at this time. 7. Preventative Care: Colon Cancer Screening The patient is reminded about the importance of colon cancer screening and is offered options such as colonoscopy or Cologuard testing. Discussion Notes During the visit, I discussed with the patient the importance of managing his chronic conditions, including obesity, hypercholesterolemia, nephrolithiasis, hypertension, and impaired glucose tolerance. We reviewed his current medications and the need for regular follow-up to monitor his health status. I emphasized the importance of lifestyle modifications, such as diet and exercise, to manage his conditions effectively. We also discussed preventative care measures, including colon cancer screening and vaccinations. The patient was informed about the need for a tetanus booster and the timing for the flu vaccine. I encouraged him to increase his water intake, especially given his use of hydrochlorothiazide, and to consider knee x-rays if his pain worsens. The patient was advised to contact the office if he has any questions or concerns about his health or treatment plan. Patient Instructions - Maintain a healthy diet and exercise regularly to manage weight and blood sugar levels. - Aim for an LDL cholesterol goal of less than 130 mg/dL and triglycerides less than 150 mg/dL. - Increase water intake to at least three to four glasses per day. - Consider colon cancer screening options when ready. - Schedule a tetanus booster as it is due. - Plan for a flu vaccination in December. Orders: Orders Free T4 (Free Thyroxine) Today R73.02 - Impaired glucose tolerance (oral) Hemoglobin A1c Today R73.02 - Impaired glucose tolerance (oral) Complete Blood Count Auto Diff Today R73.02 - Impaired glucose tolerance (oral) Lipid Panel Today E78.00 - Pure hypercholesterolemia, unspecified, R73.02 - Impaired glucose tolerance (oral) Thyroid Stimulating Hormone Today R73.02 - Impaired glucose tolerance (oral) Vitamin B12 and Folate Today R73.02 - Impaired glucose tolerance (oral) XR Knee Sharif 1or 2V Today M25.561 - Pain in right knee, M25.562 - Pain in left knee Comprehensive Met. Panel Today R73.02 - Impaired glucose tolerance (oral) TDaP Immunization Today Z23 - Encounter for immunization
== END 2024-11-27 09:55 | disposition home or self-care (01) ==
LOC: HO.HMCH 08:53
PROVIDERS: PCP Internal Medicine; Visit Provider Internal Medicine
DX: Z00.00 Encounter for general adult medical examination without abnormal findings (principal); E53.8 Deficiency of other specified B group vitamins; E66.01 Morbid (severe) obesity due to excess calories; Z68.41 Body mass index [BMI] 40.0-44.9, adult; Z12.11 Encounter for screening for malignant neoplasm of colon; R73.02 Impaired glucose tolerance (oral); I10 Essential (primary) hypertension; E78.00 Pure hypercholesterolemia, unspecified; Z53.20 Procedure and treatment not carried out because of patient's decision for unspecified reasons; M25.561 Pain in right knee; M25.562 Pain in left knee; Z23 Encounter for immunization

== ENCOUNTER → 2024-11-27 08:53 | Outpatient (BNVA) | payer OTHER, SELFPAY | PROVIDERS: PCP Internal Medicine; Visit Provider Internal Medicine | DX: Z00.00 Encounter for general adult medical examination without abnormal findings (principal); E53.8 Deficiency of other specified B group vitamins; E66.01 Morbid (severe) obesity due to excess calories; R73.02 Impaired glucose tolerance (oral); I10 Essential (primary) hypertension; E78.00 Pure hypercholesterolemia, unspecified; M25.561 Pain in right knee; M25.562 Pain in left knee; Z23 Encounter for immunization; Z68.41 Body mass index [BMI] 40.0-44.9, adult | CPT/HCPCS: 90471; 90715; 99396 ==

== ENCOUNTER 2024-12-04 07:46 | Outpatient (REF) | payer OTHER, SELFPAY ==
--- NOTE | ~2024-12-04 | XR_ITS ---
EXAMINATION: XR KNEE AP STANDING CLINICAL INFORMATION: M25.561 - Pain in right knee COMPARISON: None available. TECHNIQUE: AP bilateral standing view of the knees was obtained. Lateral views both knees.. FINDINGS: There is joint space narrowing involving medial lateral compartments as well as the patellofemoral joint more pronounced in the medial compartment of the left knee. There is sclerosis along the articular surface involving tibial plateau and medial femoral condyle left femur and lateral femoral condyle, right femur. Large osteophyte formation in the medial femoral condyles and to a lesser extent medial tibial plateaus, both knees. No acute cortical disruption or malalignment. No lytic or blastic lesions. Small volume suprapatellar bursa joint effusion, bilaterally, more conspicuous left knee. XR/XR Knee Sharif 1or 2V IMPRESSION: Moderate to severe tricompartmental osteoarthrosis/osteoarthritis both knees, pronounced in the left knee and involving mostly the medial compartment. Electronically signed by: Wilder Santos MD 12/04/2024 08:17 AM EDT
[2024-12-04 07:58] LABS: MANUAL DIFF FLAG NO
[2024-12-04 08:51] LABS: Hematocrit 49.3 % (42.0-52.0); Hemoglobin 16.0 g/dl (14.0-18.0); Imm Gran Abs Auto 0.02 X10*3/uL (0.00-0.03); Imm Gran Pct Auto 0.3 % (0.0-0.4); Lymphocytes Absolute Auto 1.7 X10*3/uL (1.2-4.9); Mean Corpuscular HGB Conc 32.5 g/dl (31.0-36.0); Mean Corpuscular Hemoglobin 28.9 pg (27.0-33.0); Mean Corpuscular Volume 89.0 fL (80.0-98.0); NRBC Abs Auto 0.000 X10*3/uL (0.0-0.012); NRBC Pct Auto 0.0 /100WBC (0.0-0.2); Platelet Count 258 X10*3/uL (160-400); Red Blood Count 5.54 X10*6/uL (4.60-5.80); White Blood Count 6.6 X10*3/uL (4.8-10.8)
[2024-12-04 09:01] LABS: Hemoglobin A1C 147.3062 umol/L; Total Hemoglobin (HGBA1C) 4143.2622 umol/L
[2024-12-04 09:24] LABS: Alanine Aminotransferase 15 U/L (0-40); Albumin Level 4.4 g/dL (3.5-5.0); Alkaline Phosphatase 67 U/L (39-117); Anion Gap 12 (12-20); Aspartate Amino Transferase 20 U/L (5-37); Blood Urea Nitrogen 20 mg/dL (9-16); Calcium 9.0 mg/dL (8.4-10.2); Carbon Dioxide 26 mmol/L (22-29); Chloride 106 mmol/L (96-108); Cholesterol 179 mg/dL (<200); Estimated Glomerular Filt Rate > 60; HDL Cholesterol 38 mg/dL (>40); Potassium 3.9 mmol/L (3.3-5.1); Sodium 140 mmol/L (135-145); Total Protein 7.7 g/dL (6.5-8.0); Triglycerides 92 mg/dL (<150)
[2024-12-04 09:42] LABS: Free T4 (Free Thyroxine) 0.96 ng/dL (0.71-1.85); Thyroid Stimulating Hormone 1.50 uIU/mL (0.32-4.0)
[2024-12-04 09:56] LABS: Folate 6.1 ng/mL (> or = 4.0); Vitamin B12 362 pg/mL (200-900)
== END 2024-12-04 07:47 | disposition home or self-care (01) ==
LOC: HO.LAB 07:46
PROVIDERS: PCP Internal Medicine; Visit Provider Internal Medicine
DX: M25.561 Pain in right knee (principal); M25.562 Pain in left knee; E78.00 Pure hypercholesterolemia, unspecified; R73.02 Impaired glucose tolerance (oral)
CPT/HCPCS: 36415; 73560; 80053; 80061; 82607; 82746; 83036; 84439; 84443; 85025

== ENCOUNTER → 2024-12-04 07:58 | Outpatient (BNV) | payer OTHER, SELFPAY | PROVIDERS: PCP Internal Medicine; Visit Provider Radiology Diagnostic Radiology | DX: M17.0 Bilateral primary osteoarthritis of knee (principal) | CPT/HCPCS: 73560 ==

== ENCOUNTER 2025-01-02 08:47 | Outpatient (AMB) | payer OTHER, SELFPAY ==
--- NOTE | 2025-01-02 08:50 | A.OFFVIS_ITS ---
Vital Signs 01/02/25 08:56 Height 5 ft 5 in Weight 270 lb BMI 44.9 Intake Visit Reasons: Bilateral knee pains Intake Note: Evelio is a 49 year old male who presents with complaints of bilateral knee pains. He describes his pains as sharp in nature. His pains have gotten worse over the last few years in spite of continued non operative treatments. Has failed the last 3 months of conservative treatment which has included Tylenol, anti-inflammatory medicines, a home exercise program and physical therapy exercises. At this point his bilateral knee pains are interfering with his activities of daily living and his ability to sleep well through the night. The patient wishes to hold off on surgery if at all possible. Allergies No Known Allergies (No Known Allergies*) Allergy (Verified 01/02/25 08:56) Medication List - Last Reconciled 01/02/25 by Aman Szymanski MD blood pressure monitor (Blood Pressure Kit) As directed folic acid 1 mg PO DAILY hydrochlorothiazide 12.5 mg PO DAILY 90 days [facility] Medical History (Updated 01/02/25 @ 09:19 by Aman Szymanski MD) Obesity Right renal stone Hypercholesterolemia Vitamin D deficiency Surgical History (Updated 03/04/21 @ 16:51 by Arsalan Cooper MD) Male circumcision H/O hernia repair Family History (Updated 11/23/23 @ 10:31 by Laura Shah CMA) Mother No problems noted. Father No problems noted. Brother No problems noted. Sister No problems noted. Daughter No problems noted. Daughter No problems noted. Social History (Updated 03/09/21 @ 10:10 by Arsalan Cooper MD) Housing: Apartment Alcohol intake: never Patient Tobacco Use Status: Never used Tobacco Tobacco use type: Cigarette e-Cigarette/Vaping Use: Never Used Second Hand Smoke Exposure: No Current occupational status: unemployed Cognitive needs: No Hearing needs: No Vision needs: No Physical Exam Vital Signs: BMI result Body Mass Index 44.9 Const Other: Well-nourished well-developed very friendly male awake alert and oriented x3 in no acute distress Extrem Other: Bilateral knee examination shows minimal effusions, palpable crepitus with range of motion, pain with range of motion, no instability Results Reviewed Results Reviewed: X-rays of the patient's bilateral knee show moderate diffuse joint space narrowing, subchondral sclerosis, no acute bony abnormalities Assessment & Plan Assessment & Plan (1) Osteoarthritis of left knee: Code(s): M17.12 - Unilateral primary osteoarthritis, left knee Category: Medical (2) Osteoarthritis of right knee: Code(s): M17.11 - Unilateral primary osteoarthritis, right knee Category: Medical Plan Mr. Bennett presents with bilateral knee pains due to osteoarthritis. I had a lengthy discussion with the patient regarding the treatment options. He wishes to hold off on surgery if at all possible. I agree with this plan. I will see if the patient's insurance company will cover a viscosupplementation injection, such as Durolane, for both of his knees. I will see him back once the injections are available. Feel free to call me at any time should questions regarding his orthopedic management arise. Thank you very much for asking me to see this very friendly gentleman. I spent 21 minutes in reviewing the patient's records and imaging studies, seeing the patient and documenting in the medical record. Coding Level of Care Code New Pt Level 3 (37733) Complex EM visit Add On G2211 Diagnoses Osteoarthritis of left knee M17.12 Osteoarthritis of right knee M17.11
[2025-01-02 08:56] VITALS: BMI 44.9
== END 2025-01-02 09:14 | disposition home or self-care (01) ==
LOC: HO.HOS 08:47
PROVIDERS: PCP Internal Medicine; Visit Provider Orthopaedic Surgery
DX: M17.10 Unilateral primary osteoarthritis, unspecified knee (principal)
CPT/HCPCS: 99203

== ENCOUNTER → 2025-01-02 08:47 | Outpatient (BNVA) | payer OTHER, SELFPAY | PROVIDERS: PCP Internal Medicine; Visit Provider Orthopaedic Surgery | DX: M17.0 Bilateral primary osteoarthritis of knee (principal) | CPT/HCPCS: 99202 ==

== ENCOUNTER 2025-02-07 08:50 | Outpatient (AMB) | payer OTHER, SELFPAY ==
--- NOTE | 2025-02-07 08:52 | A.OFFVIS_ITS ---
Vital Signs 02/07/25 08:56 Height 5 ft 5 in Weight 280 lb BMI 46.6 Intake Visit Reasons: INJ- B/L Durolane INJ Intake Note: Evelio is a 50 year old male who presents with complaints of bilateral knee pains. He describes his pains as sharp in nature. He has failed the last 3 months of conservative treatment which has included Tylenol, anti-inflammatory medicines and a home exercise program. He wishes to hold off on surgery if at all possible. Allergies No Known Allergies (No Known Allergies*) Allergy (Verified 02/07/25 08:52) Medication List - Last Reconciled 02/07/25 by Aman Szymanski MD blood pressure monitor (Blood Pressure Kit) As directed folic acid 1 mg PO DAILY hydrochlorothiazide 12.5 mg PO DAILY 90 days [facility] Medical History Obesity Right renal stone Hypercholesterolemia Vitamin D deficiency Surgical History Male circumcision H/O hernia repair Family History Mother No problems noted. Father No problems noted. Brother No problems noted. Sister No problems noted. Daughter No problems noted. Daughter No problems noted. Social History Housing: Apartment Alcohol intake: never Patient Tobacco Use Status: Never used Tobacco Tobacco use type: Cigarette e-Cigarette/Vaping Use: Never Used Second Hand Smoke Exposure: No Current occupational status: unemployed Cognitive needs: No Hearing needs: No Vision needs: No Physical Exam Vital Signs: BMI result Body Mass Index 46.6 Extrem Other: Bilateral knee examination shows minimal effusions, palpable crepitus with range of motion, pain with range of motion, no instability Office Procedures AMB Joint Injection/Aspiration Joint Injection/Aspiration Primary Site: Left Knee Prep: site was prepped using aseptic technique Injected: Durolane, with 4 mL of and 1% plain Lidocaine Procedure: The patient tolerated the procedure well Coding 07820 - Large joint Procedure code (CPT) selection complete AMB Joint Injection/Aspiration Joint Injection/Aspiration Primary Site: Right Knee Prep: site was prepped using aseptic technique Injected: Durolane, with 4 mL of and 1% plain Lidocaine Procedure: The patient tolerated the procedure well Coding 57999 - Large joint Procedure code (CPT) selection complete Results Reviewed Results Reviewed: X-rays of the patient's bilateral knees taken previously show joint space narrowing, subchondral sclerosis, no acute bony abnormalities Assessment & Plan Assessment & Plan (1) Osteoarthritis of left knee: Code(s): M17.12 - Unilateral primary osteoarthritis, left knee Category: Medical (2) Osteoarthritis of right knee: Code(s): M17.11 - Unilateral primary osteoarthritis, right knee Category: Medical Plan Mr. Bennett presents with bilateral knee pains due to osteoarthritis. The risks and benefits of bilateral knee Durolane viscosupplementation injections were discussed at length with the patient. The patient wished to proceed. He tolerated the injections well. He will continue with his home exercise program. He will contact me prior to his follow-up appointment in 3 months should any questions or concerns arise. Feel free to call me at any time should questions regarding his orthopedic management arise. I spent 21 minutes in reviewing the patient's records and imaging studies, seeing the patient and documenting in the medical record. Orders: Orders AMB Joint Injection/Aspiration Today M17.12 - Unilateral primary osteoarthritis, left knee AMB Joint Injection/Aspiration Today M17.11 - Unilateral primary osteoarthritis, right knee Coding Level of Care Code Est Pt Level 3 (77865) Complex EM visit Add On G2211 Diagnoses Osteoarthritis of left knee M17.12 Osteoarthritis of right knee M17.11 CPT Codes Coding - 05218 Large joint: 10712 - Large joint ([id number]) Coding - 21586 Large joint: 62452 - Large joint ([id number])
[2025-02-07 08:56] VITALS: BMI 46.6
== END 2025-02-07 09:15 | disposition home or self-care (01) ==
LOC: HO.HOS 08:51
PROVIDERS: PCP Internal Medicine; Visit Provider Orthopaedic Surgery
DX: M17.0 Bilateral primary osteoarthritis of knee (principal)
CPT/HCPCS: 20610

== ENCOUNTER → 2025-02-07 08:50 | Outpatient (BNVA) | payer OTHER, SELFPAY | PROVIDERS: PCP Internal Medicine; Visit Provider Orthopaedic Surgery | DX: M17.0 Bilateral primary osteoarthritis of knee (principal) | CPT/HCPCS: 20610; J2003; J7318 ==